=== PATIENT | male | born 1945 | race African-American/Black ===

== ENCOUNTER 2020-12-12 00:03 | Emergency (ER) | payer OTHER ==
[~2020-12-12] VITALS: Ht 188 cm; Wt 116.0 kg
[2020-12-12 02:37] LABS: HEMATOCRIT. 35.4 % (42.0-52.0); HEMOGLOBIN. 11.4 g/dL (14.0-18.0); MEAN CORPUSCULAR HEMOGLOBIN 24.7 pg (28.0-32.0); MEAN CORPUSCULAR VOLUME 76.9 fL (80.0-94.0); MEAN PLATELET VOLUME 8.5 fl (7.4-10.4); PLATELET 267 x1000/uL (130-400); RED CELL DISTRIBUTION WIDTH 26.3 % (11.6-14.6)
[2020-12-12 02:45] LABS: CHLORIDE 99 mEq/L (98-107)
[2020-12-12 04:17] LABS: PLATELET ESTIMATE NORMAL
[2020-12-12] MEDS ORDERED: MORPHINE SULFATE 4 MG/ML CPJ (NOT FOR IM USE) IV STA (05:38)
[2020-12-12] MEDS ORDERED: ONDANSETRON HCL 4MG/2ML INJ IV STA (05:38)
[2020-12-12 09:48] VITALS: BP 149/90
== END 2020-12-12 10:07 | disposition short-term general hospital (02) ==
LOC: ER 00:03
DX: K56.609 Unspecified intestinal obstruction, unspecified as to partial versus complete obstruction (principal); K42.9 Umbilical hernia without obstruction or gangrene; R41.82 Altered mental status, unspecified; N26.1 Atrophy of kidney (terminal); N28.1 Cyst of kidney, acquired; R16.0 Hepatomegaly, not elsewhere classified; J45.909 Unspecified asthma, uncomplicated; I10 Essential (primary) hypertension; Z18.89 Other specified retained foreign body fragments
CPT/HCPCS: 36415; 70450; 71045; 74176; 80053; 83605; 84484; 85025; 93005; 96374; 96375; 99285; J2270; J2405